=== PATIENT | male | born 1985 | race Caucasian/White ===

== ENCOUNTER 2017-04-30 21:16 | Emergency (ER) | payer OTHER ==
[~2017-04-30] VITALS: Ht 182.9 cm; Wt 90.9 kg
[2017-04-30 21:19] VITALS: TEMP 98
[2017-04-30] MEDS ORDERED: AMOXICILLIN 8751 TAB PO (23:57)
[2017-05-01 00:40] VITALS: BP 129/84; PULSE 80
== END 2017-05-01 00:40 | disposition home or self-care (01) ==
LOC: COL.ER 21:16
DX: S61.411A Laceration without foreign body of right hand, initial encounter (principal); W54.0XXA Bitten by dog, initial encounter; Y92.009 Unspecified place in unspecified non-institutional (private) residence as the place of occurrence of the external cause